=== PATIENT | male | born 1960 | race Caucasian/White ===

== ENCOUNTER → 2017-01-06 | Outpatient (REF) | payer OTHER | LOC: M LAB REF 16:51 | PROVIDERS: ATTEND Nurse Practitioner Family | DX: M15.9 Polyosteoarthritis, unspecified (principal); R21 Rash and other nonspecific skin eruption; Z01.89 Encounter for other specified special examinations ==

== ENCOUNTER → 2017-02-07 | Outpatient (CLI) | payer OTHER ==
[~2017-02-07] VITALS: Ht 175.3 cm; Wt 113.4 kg
[~2017-02-07] MED LIST: ALEV220C2 PO; CVS20TAB PO; LIDOCAINE 2% INJ 100 MG/5 ML SDV (FOR ANES.) As Ordered ONE; NS 1,000 ML IV SCH; PROPOFOL 200 MG/20 ML VIAL As Ordered ONE
--- NOTE | 2017-02-07 08:55 | ROOR ---
Patient Name: Jeramy Meza Procedure Date: 02/07/2017 8:38 AM Date of : 1960 Age: 56 Room: [facility] Gender: Male Note Status: Finalized Procedure: Colonoscopy Indications: Screening for colorectal malignant neoplasm Providers: Ronaldo ROWLAND MD Referring MD: Lisa HEATON NP Requesting Provider: Medicines: Monitored Anesthesia Care Complications: No immediate complications. Procedure: Pre-Anesthesia Assessment: - The heart rate, respiratory rate, oxygen saturations, blood pressure, adequacy of pulmonary ventilation, and response to care were monitored throughout the procedure. The Colonoscope was introduced through the anus and advanced to the cecum, identified by appendiceal orifice and ileocecal valve. The colonoscopy was performed without difficulty. The patient tolerated the procedure well. The quality of the bowel preparation was good. Findings: The perianal and digital rectal examinations were normal. A few medium-mouthed diverticula were found in the sigmoid colon. Small Internal Hemorrhoids. The exam was otherwise without abnormality on direct and retroflexion views. Impression: - Mild diverticulosis in the sigmoid colon. - Small Internal Hemorrhoids. - The examination was otherwise normal on direct and retroflexion views. - No specimens collected. Recommendation: - Repeat colonoscopy in 10 years for screening purposes. Ronaldo Rowland MD Ronaldo ROWLAND MD 02/07/2017 8:54:47 AM This report has been signed electronically. Number of Addenda: 0 Note Initiated On: 02/07/2017 8:38 AM Estimated Blood Loss: Estimated blood loss: none.
[2017-02-07 09:19] VITALS: BP 128/72
== END | disposition home or self-care (01) ==
LOC: M OPP 07:43
PROVIDERS: ATTEND Internal Medicine Gastroenterology
DX: Z12.11 Encounter for screening for malignant neoplasm of colon (principal); K57.30 Diverticulosis of large intestine without perforation or abscess without bleeding; K64.8 Other hemorrhoids; M19.90 Unspecified osteoarthritis, unspecified site; K21.9 Gastro-esophageal reflux disease without esophagitis; Z79.1 Long term (current) use of non-steroidal anti-inflammatories (NSAID)

== ENCOUNTER → 2017-05-08 | Outpatient (CLI) | payer OTHER ==
[~2017-05-08] MED LIST changes: -LIDOCAINE 2% INJ 100 MG/5 ML SDV (FOR ANES.) As Ordered ONE; -NS 1,000 ML IV SCH; -PROPOFOL 200 MG/20 ML VIAL As Ordered ONE
--- NOTE | 2017-05-08 12:09 | REP ---
Clinical: Back and left hip/lower extremity pain. Technique: AP, lateral, bilateral oblique and coned-down views of the lumbosacral spine. Findings: Moderate multilevel degenerative changes include endplate sclerosis, marginal spurring, and disc space narrowing. Hypertrophic facet changes at the L4-5 and L5-S1 levels are also suggested. No acute fracture / compression injury or subluxation. Impression: Moderate multilevel degenerative changes. Signed by Arvin Luciano MD 05/08/2017 12:01 P
--- NOTE | 2017-05-08 12:32 | REP ---
Clinical: Bilateral hip pain. Technique: AP of the pelvis with neutral and frog lateral views of the bilateral hips. Findings: Symmetric advanced degenerative arthritic changes to the bilateral hips includes joint space narrowing, subtle blunting to the normal rounded contour of the femoral heads, subchondral sclerosis and heterogeneity as well as marginal osteophytes. No acute fracture dislocation. Impression: Symmetric early advanced degenerative changes. Signed by Arvin Luciano MD 05/08/2017 12:24 P
[2017-05-10 00:07] LABS: Lyme Disease IgG/IgM Antibodie <0.91 ISR (0.00-0.90); Lyme Disease IgM Ab Quantitati <0.80 index (0.00-0.79)
== END ==
LOC: M WUC 11:06
PROVIDERS: ATTEND Nurse Practitioner Family
DX: M54.5 Low back pain (principal); M25.551 Pain in right hip

== ENCOUNTER → 2017-10-16 | Outpatient (CLI) | payer OTHER ==
[~2017-10-16] MED LIST changes: +HYDR25TAB PO; +MELO15TA4 PO
[2017-10-16 11:02] LABS: MEAN CORPUSCULAR HEMOGLOBIN 30.3 pg (27.0-33.0); MEAN CORPUSCULAR HGB CONC 34.4 g/dl (32.0-36.5); MEAN CORPUSCULAR VOLUME 88.1 fl (80.0-96.0); PLATELET COUNT, AUTOMATED 266 10^3/uL (150-450); RED CELL DISTRIBUTION WIDTH 13.3 % (11.5-14.5); WHITE BLOOD COUNT 6.2 10^3/uL (4.0-10.0)
[2017-10-16 11:21] LABS: INR 0.95
[2017-10-16 11:24] LABS: ERYTHROCYTE SEDIMENTATION RATE 3 mm/hr (0-20)
[2017-10-16 11:36] LABS: ALBUMIN 4.1 GM/DL (3.2-5.2); ALBUMIN/GLOBULIN RATIO 1.14 (1.00-1.93); ALKALINE PHOSPHATASE 53 U/L (45-117); ALT/SGPT 29 U/L (12-78); ANION GAP 9 MEQ/L (8-16); AST/SGOT 15 U/L (7-37); BILIRUBIN,TOTAL 0.8 MG/DL (0.2-1.0); BLOOD UREA NITROGEN 25 MG/DL (7-18); CALCIUM LEVEL 9.1 MG/DL (8.5-10.1); CARBON DIOXIDE LEVEL 28 MEQ/L (21-32); CHLORIDE LEVEL 105 MEQ/L (98-107); CREATININE FOR GFR 0.82 MG/DL (0.70-1.30); GLOMERULAR FILTRATION RATE > 60.0 (>56); GLUCOSE, FASTING 97 MG/DL (70-105); POTASSIUM SERUM 3.8 MEQ/L (3.5-5.1); SODIUM LEVEL 142 MEQ/L (136-145); TOTAL PROTEIN 7.7 GM/DL (6.4-8.2)
--- NOTE | 2017-10-16 13:38 | REP ---
Chest two views HISTORY: Back pain Comparison: None There is elevation of the right hemidiaphragm. The lungs are clear. The heart is normal in size. The pulmonary vasculature is normal in appearance. The bony structure is intact. IMPRESSION: No acute disease. Signed by El Helm MD 10/16/2017 01:29 P
--- NOTE | 2017-10-16 18:41 | ECGEPIP ---
Stationary ECG Study [facility] Test Date: 2017-10-16 Pat Name: ROBBIN COLLIER Department: Room: - Gender: M [employer]: : 1960 Requested By: Ron Kelley Order Number: [id number] Reading MD: Thai Tavera Measurements Intervals [place] Rate: 68 P: 35 VA: 180 QRS: 9 QRSD: 102 T: 21 QT: 387 QTc: 413 Interpretive Statements SINUS RHYTHM Normal Electronically Signed On 10-16-2017 18:41:19 EST by Thai Tavera
== END ==
LOC: M ADMPAT 09:27
PROVIDERS: ATTEND Orthopaedic Surgery
DX: Z01.818 Encounter for other preprocedural examination (principal); M16.12 Unilateral primary osteoarthritis, left hip; K21.9 Gastro-esophageal reflux disease without esophagitis

== ENCOUNTER 2017-10-23 10:30 | Inpatient (IN) | payer OTHER ==
[2017-10-16 09:51] VITALS: BP 128/82
--- NOTE | 2017-10-21 15:25 | HPE ---
DATE OF ADMISSION: 10/23/2017 CHIEF COMPLAINT: Left hip pain and stiffness. HISTORY OF PRESENT ILLNESS: Jeramy is a pleasant 57-year-old male with progressively worsening left hip pain and stiffness. He has failed to improve with conservative treatment. He has elected for surgery for his continued symptoms. He has pain with weightbearing activities and his activities of daily living. X-rays of his hip are notable for advanced osteoarthritis of the left hip joint. He has consented for a left total hip arthroplasty by Dr. Ron Traore. Medical optimization was performed by Dr. Gibbs. ALLERGIES: None. CURRENT MEDICATIONS: - omeprazole 20 once a day - meloxicam 50 mg once a day - hydrochlorothiazide 25 mg once a day PAST MEDICAL HISTORY: Gastroesophageal reflux disease and dependent edema. PAST SURGICAL HISTORY: Includes hernia repair. 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 He does not smoke and rarely drinks alcohol. FAMILY HISTORY: Noncontributory. REVIEW OF SYSTEMS: This patient denies chest pain, heart palpitations, cough, wheezing, difficulty breathing and shortness of breath. He denies abdominal pain, nausea, vomiting, diarrhea or constipation. He does complain of persistent pain in his left hip and pain with weightbearing activities in his left hip. PHYSICAL EXAMINATION: GENERAL: He is well-nourished, well-developed in no acute distress, alert male patient. He walks with a moderate limp favoring the left lower extremity. He is not using assistive devices. VITAL SIGNS: He is 68-3/4 inches tall, weight 241 pounds with a temperature of 98.1, blood pressure 130/100, pulse of 66 and respirations of 16. Neck was supple without adenopathy or jugular venous distension. LUNGS: Were clear to auscultation without rales or wheeze throughout. HEART: Regular rate and rhythm. ABDOMEN: Bowel sounds were present. EXTREMITIES: Examination of the hip revealed intact skin. He had decreased range of motion with internal, external rotation on exam today secondary to pain and stiffness. The limb is neurovascularly intact. LABORATORY DATA Chest x-ray showed no acute cardiopulmonary disease processes. EKG showed sinus rhythm. UA was within normal limits with a specific gravity of 1.019. Urine culture showed no growth. Nasal and sinus culture showed normal danny. Protime was 12.8, INR 0.95. Complete blood count was within normal limits with a sed rate of 3, glucose 97, BUN 25, creatinine 0.82, sodium 142, potassium 3.8. IMPRESSION: Symptomatic osteoarthritis of the left hip joint. PLAN: Consented for a left total hip arthroplasty by Dr. Ron Traore.
[~2017-10-23] VITALS: Ht 172.7 cm; Wt 108.9 kg
[2017-10-23] MEDS ORDERED: PREGABALIN 75 MG CAP(LYRICA) PO ONE (13:00)
[2017-10-23] MEDS ORDERED: PERCOCET 5MG/325MG TAB PO ONE (13:00)
[2017-10-23] MEDS ORDERED: LR 1,000 ML IV ONE (13:00)
[2017-10-23] MEDS ORDERED: CelecoXIB 400 MG CAP PO ONE (13:00)
[2017-10-23] MEDS ORDERED: TRANEXAMIC ACID 100 MG/ML 10ML VIAL As Ordered ONE (14:45)
[2017-10-23] MEDS ORDERED: ceFAZolin 1GM INJ (J0690 PER 500MG) As Ordered ONE (14:46)
[2017-10-23] MEDS ORDERED: EPINEPHrine INJ 1 MG/ML 1ML AMP As Ordered ONE (14:46)
[2017-10-23] MEDS ORDERED: LIDOCAINE W/EPINEPHRINE 1% 20ML VIAL As Ordered ONE (14:46)
[2017-10-23] MEDS ORDERED: BUPIVACAINE HCL 0.5% 10 ML VIAL As Ordered ONE (15:00)
[2017-10-23] MEDS ORDERED: BUPIVACAINE LIPOSOME/PF 1.3% 20 ML VIAL (13.3MG/ML)(EXPAREL) As Ordered ONE (15:00)
[2017-10-23] MEDS ORDERED: PROPOFOL 200 MG/20 ML VIAL As Ordered ONE (15:14)
[2017-10-23] MEDS ORDERED: PHENYLephrine HCL 500 MCG/5 ML (100MCG/ML) SYRINGE (J2370) As Ordered ONE ×2 (15:14→17:06)
[2017-10-23] MEDS ORDERED: fentaNYL 100 MCG/2 ML INJECTION (J3010) As Ordered ONE (15:14)
[2017-10-23] MEDS ORDERED: ONDANSETRON 4MG/2ML VIAL (J2405) As Ordered ONE (15:14)
[2017-10-23] MEDS ORDERED: LIDOCAINE 2% INJ 100 MG/5 ML SDV (FOR ANES.) As Ordered ONE (15:14)
[2017-10-23] MEDS ORDERED: MIDAZOLAM INJ 2 MG/2 ML VIAL (J2250) As Ordered ONE (15:14)
[2017-10-23] MEDS ORDERED: ePHEDrine SULFATE 25 MG/5 ML(5MG/ML) SYRINGE As Ordered ONE (17:07)
[2017-10-23] MEDS ORDERED: GLYCOPYRROLATE INJ 0.2 MG/ML 2 ML VIAL As Ordered ONE (17:21)
[2017-10-23] MEDS ORDERED: fentaNYL 100 MCG/2 ML INJECTION (J3010) IV PRN (18:45)
[2017-10-23] MEDS ORDERED: NORTRIPTYLINE 10 MG CAP PO PRN (18:45)
[2017-10-23] MEDS ORDERED: LR 1,000 ML IV SCH (18:45)
[2017-10-23] MEDS ORDERED: PERCOCET 5MG/325MG TAB PO PRN (18:45)
[2017-10-23] MEDS ORDERED: D5W/LR 1,000 ML IV SCH (18:45)
[2017-10-23] MEDS ORDERED: PROMETHAZINE INJ 25 MG/ML VIAL (J2550) IV PRN (18:45)
[2017-10-23] MEDS ORDERED: METOCLOPRAMIDE INJ 10MG/2ML VIAL (J2765) IV PRN (18:45)
[2017-10-23] MEDS ORDERED: ACETAMINOPHEN TAB 650MG DOSE (2X325MG) PO PRN (18:45)
[2017-10-23] MEDS ORDERED: FLEET ENEMA PR PRN (18:45)
[2017-10-23] MEDS ORDERED: ONDANSETRON 4MG/2ML VIAL (J2405) IV PRN (18:45)
[2017-10-23] MEDS: PERCOCET 5MG/325MG TAB PO PRN ×2 (18:46→21:47)
[2017-10-23] MEDS ORDERED: WARFARIN SOD 1 MG TAB PO ONE ×2 (19:00→21:00)
[2017-10-23 19:30] VITALS: BP 116/72
--- NOTE | 2017-10-23 19:54 | REP ---
HISTORY: Pain. COMPARISON: None. There is a total hip prosthetic device in place, the femoral and acetabular components of which are well-seated and well-approximated. There is no acute fracture or dislocation. There is no evidence of an abnormal periprosthetic lucency. IMPRESSION: No acute disease. Signed by Nathen Fisher DO 10/24/2017 02:10 P
[2017-10-23 20:00] VITALS: BP 120/75
[2017-10-23] MEDS: METAMUCIL (PSYLLIUM) PACKET PO SCH (20:51)
[2017-10-23] MEDS: ASCORBIC ACID 500 MG TAB PO SCH (20:51)
[2017-10-23] MEDS: PREGABALIN 50 MG CAP (LYRICA) PO SCH (20:51)
[2017-10-23 21:00] VITALS: BP 155/68
[2017-10-23 22:00] VITALS: BP 155/67
[2017-10-23 23:00] VITALS: BP 165/60
[2017-10-23] MEDS: ACETAMINOPHEN TAB 650MG DOSE (2X325MG) PO PRN (23:30)
[2017-10-24] VITALS: BP 132/86
[2017-10-24] MEDS: PERCOCET 5MG/325MG TAB PO PRN ×4 (02:11→14:42)
[2017-10-24] MEDS: ACETAMINOPHEN TAB 650MG DOSE (2X325MG) PO PRN ×3 (04:12→12:27)
[2017-10-24 06:00] VITALS: BP 122/69
[2017-10-24 07:17] LABS: MEAN CORPUSCULAR HEMOGLOBIN 29.7 pg (27.0-33.0); MEAN CORPUSCULAR HGB CONC 33.3 g/dl (32.0-36.5); PLATELET COUNT, AUTOMATED 212 10^3/uL (150-450); RED CELL DISTRIBUTION WIDTH 13.5 % (11.5-14.5); WHITE BLOOD COUNT 10.5 10^3/uL (4.0-10.0)
[2017-10-24] MEDS ORDERED: PERC5TAB12 PO (08:20)
[2017-10-24] MEDS ORDERED: COUM2.5T17 PO (08:20)
[2017-10-24] MEDS: METAMUCIL (PSYLLIUM) PACKET PO SCH (08:21)
[2017-10-24] MEDS: PREGABALIN 50 MG CAP (LYRICA) PO SCH (08:21)
[2017-10-24] MEDS: ASCORBIC ACID 500 MG TAB PO SCH (08:21)
[2017-10-24 08:55] LABS: INR 1.12
[2017-10-24] MEDS ORDERED: MOM 30ML SUSPENSION UDC PO SCH (09:00)
[2017-10-24] MEDS ORDERED: CelecoXIB (CeleBREX) 100 MG CAP PO SCH (09:00)
[2017-10-24] MEDS ORDERED: OMEPRAZOLE 20 MG CAP PO SCH (09:00)
--- NOTE | 2017-10-24 09:52 | RO ---
DATE OF PROCEDURE: 10/23/2017 PREOPERATIVE DIAGNOSIS: Left hip osteoarthritis. POSTOPERATIVE DIAGNOSIS: Left hip osteoarthritis. PROCEDURE PERFORMED: Left total hip replacement. SURGEON: Dr. Ron Traore. RECEIVING MANAGER: Jeramy Mauricio PA-C ANESTHESIA: Spinal. ESTIMATED BLOOD LOSS: 50 mL replaced with crystalloid. COMPLICATIONS: None. INDICATIONS: Progressive discomfort in the left hip interfering with activities of daily living. The patient has elected for operative intervention. Consent reviewed in detail with the patient including emily discussion of the pathology involved, the procedure proposed, alternatives including doing nothing. We also had a emily discussion about bearing surfaces, metal versus ceramic for example. The patient elects for a ceramic bearing. Next, we talked about risks including not limited to pain, failure, catastrophic failure of the bearing surface, infection, bleeding blood clots, blood loss, dislocation, need for more surgery and other issues. The patient agrees to proceed with surgery. OPERATIVE COURSE: Identified in the holding area, site side verified, brought to the operating room. COMPONENTS USED: Include DePuy Trimble system size 6 high offset stem, plus 5 neck length 36 mm ceramic femoral head, size 56 mm acetabular shell, size 36 mm inner diameter acetabular AltrX liner, apex hole eliminator. OPERATIVE COURSE: Once the patient was positioned on the Andrade frame for exposure of the left hip for arthroplasty in the usual position, I stood on the patient's posterior, Mr. Mauricio anterior. Incision was outlined with a marking pen, infiltrated with 1% lidocaine with epinephrine made with a 10 blade knife developed down through skin and subcuticular tissues to lateral fascia. Lateral fascia was split parallel with the fibers exposing the abductor mechanism. Split was created at the anterior one-third position in the abductor mechanism for the modified Hardinge approach. Femoral neck was exposed. Abductor mechanism anteriorly was tagged and released from the greater trochanter leaving a cuff of tissue for later repair. The capsular tissues were also released and the vastus lateralis was split to allow palpation of the lesser trochanter. Next, reflected head of the vastus was also released and the acetabular labrum was split at the 2 o'clock position. Next using a bone hook, I placed the bone hook around the femoral neck and Mr. Mauricio manipulated the hip to assist with dislocation. Hip was dislocated. Appropriate retractors placed. Canal opening reamer was utilized followed by canal finding reamer and lateralizing reamer. We then reamed through a size 6 conical reamer. Template was applied and I made the femoral neck cut using the oscillating saw approximately three-quarter fingerbreadths from the lesser trochanter. Next, once the femoral head was removed, we then turned our attention to the acetabulum. Appropriate retractors were placed and the hip was placed in the bag for acetabular exposure. Next, acetabular labrum was removed and the floor of the acetabular fossa was cleared using hot knife. Once this was accomplished, I utilized hemispherical reamers to ream from a size 48 through a size 55 cup. I reamed the floor of the acetabulum. Next, I placed a 55-56 trial using the targeting device and this seemed to fit appropriately. I then irrigated with pulse lavage and placed a size 56 mm non-trial acetabular shell. Wheatley hole eliminator was placed after I verified the shell was in the floor of the acetabulum. Acetabular liner was placed, tamped into place with the nylon impactor, the non-trial liner. Next, we positioned the hip for exposure of the proximal femur again. I then utilized the box fabricator to open the proximal femur followed by use of the broaches. I utilized size 2 through size 6 broaches, Size 6 fit appropriately and the neck cut was adequate. Next from the 6 broach, I trialed a high offset plus five 36 mm trial. This was placed through a range of motion. It was found to be stable in flexion and internal rotation as well as extension and external rotation. Next, trial was dislocated. Leksell utilized to remove some acetabular osteophyte. Next, non-trial femoral component was obtained. Pulse lavage was accomplished Non-trial high offset femoral component was installed plus five. 36 mm ceramic femoral head was installed tamped into place with a nylon impactor. Hip was reduced. Again irrigation accomplished. TXA solution was placed in the hip allowed stand for 1 minute and evacuated. Next, once this was accomplished, minimus tissue was reapproximated using interrupted stitch. Abductor mechanism was reapproximated to the greater trochanter and cuff tissue using interrupted stitch. Vastus lateralis reapproximated using interrupted running stitch. Interrupted stitch utilized to repair the lateral fascia followed by use of a running Stratafix stitch repairing the lateral fascia. Next, irrigation again accomplished. We also injected Exparel 20 mL, 20 mL Marcaine, 20 mL saline solution. This was injected circumferentially around the fascial tissues around the wound and subcuticular areas. Next, once this was accomplished, Linda's fascia deep dermis reapproximated with interrupted stitch. Prineo dressing placed on skin. Next the Andrade table was disassembled. The patient was moved to the prone position, moved to the hospital bed with a pillow between the knees in good condition. Leg lengths were appreciated to be approximately equal. Mr. Mauricio participated in the entirety of the case in the capacity of real estate legal assistant. I was present for the entirety of the case. Next, for further details please refer to medical record.
[2017-10-24] MEDS: CEPACOL LOZENGE PO PRN ×2 (10:50→14:42)
[2017-10-24] MEDS ORDERED: WARFARIN SOD 5 MG TAB PO ONE (17:00)
--- NOTE | 2017-10-28 11:01 | DSES ---
DATE OF ADMISSION: 10/23/2017 DATE OF DISCHARGE: 10/24/2017 ADMISSION DIAGNOSIS: Osteoarthritis left hip. OTHER DIAGNOSES: Gastric reflux disease. Dependent edema. ATTENDING PHYSICIAN: Dr. Traore DISCHARGE DIAGNOSIS: Osteoarthritis left hip status post left total hip arthroplasty. OPERATION PERFORMED: Left total hip arthroplasty. HISTORY: This is a pleasant 57-year-old male patient with progressively worsening left hip pain and stiffness who failed to improve with conservative management who was admitted for elective hip replacement. HOSPITAL COURSE: The patient was admitted on day of surgery and underwent a left total hip arthroplasty which was uneventful. He did well in the postoperative period and his hospital course was without complications. He was up with physical therapy per their protocol. His pain was controlled. On day of discharge, he was doing well, weightbearing as tolerated on his left lower extremity. He will use adjusted dose Coumadin and thromboembolic deterrent stockings (TEDS) for 30 days postoperative for deep venous thrombosis (DVT) prophylaxis. He will resume his preoperative medications and diet. He was given instructions to include but not limited to wound monitoring, activity limitations. May use oral pain medications for pain control. Follow up in our office in 10-14 days for surgical followup. Please refer the medical record for further details.
== END 2017-10-24 14:51 | disposition home or self-care (01) | DRG 470 ==
LOC: M OR 12:48 → M MS5PR 19:30
PROVIDERS: ADMIT Orthopaedic Surgery; ATTEND Orthopaedic Surgery
PROC: 0SRB04A Replacement of Left Hip Joint with Ceramic on Polyethylene Synthetic Substitute, Uncemented, Open Approach (ICD-10-PCS; principal; 2017-10-23 15:10)
DX: M16.12 Unilateral primary osteoarthritis, left hip (principal); K21.9 Gastro-esophageal reflux disease without esophagitis; Z79.899 Other long term (current) drug therapy

== ENCOUNTER → 2018-10-13 | Outpatient (CLI) | payer OTHER ==
[2018-10-13 09:43] LABS: HEMATOCRIT 43.5 % (42.0-52.0); HEMOGLOBIN 14.6 g/dl (13.5-17.5); MEAN CORPUSCULAR HEMOGLOBIN 30.2 pg (27.0-33.0); MEAN CORPUSCULAR HGB CONC 33.6 g/dl (32.0-36.5); MEAN CORPUSCULAR VOLUME 89.9 fl (80.0-96.0); PLATELET COUNT, AUTOMATED 263 10^3/uL (150-450); RED BLOOD COUNT 4.84 10^6/uL (4.30-6.10); RED CELL DISTRIBUTION WIDTH 13.7 % (11.5-14.5)
[2018-10-13 09:57] LABS: INR 0.99; PROTHROMBIN TIME 13.2 SECONDS (12.1-14.4)
[2018-10-13 10:06] LABS: ALBUMIN 3.7 GM/DL (3.2-5.2); ALBUMIN/GLOBULIN RATIO 1.16 (1.00-1.93); ALKALINE PHOSPHATASE 54 U/L (45-117); ALT/SGPT 29 U/L (12-78); ANION GAP 7 MEQ/L (8-16); AST/SGOT 14 U/L (7-37); BILIRUBIN,TOTAL 0.6 MG/DL (0.2-1.0); BLOOD UREA NITROGEN 25 MG/DL (7-18); CALCIUM LEVEL 8.7 MG/DL (8.5-10.1); CARBON DIOXIDE LEVEL 28 MEQ/L (21-32); CHLORIDE LEVEL 108 MEQ/L (98-107); CREATININE FOR GFR 0.85 MG/DL (0.70-1.30); GLOMERULAR FILTRATION RATE > 60.0 (>56); GLUCOSE, FASTING 88 MG/DL (70-100); POTASSIUM SERUM 4.3 MEQ/L (3.5-5.1); SODIUM LEVEL 143 MEQ/L (136-145); TOTAL PROTEIN 6.9 GM/DL (6.4-8.2)
[2018-10-13 10:08] LABS: ERYTHROCYTE SEDIMENTATION RATE 4 mm/hr (0-20)
== END ==
LOC: M LAB 08:38
DX: Z01.818 Encounter for other preprocedural examination (principal); M16.11 Unilateral primary osteoarthritis, right hip
CPT/HCPCS: 71046

== ENCOUNTER 2018-10-26 10:53 | Inpatient (IN) | payer OTHER ==
[2018-10-26] MEDS: LR 1,000 ML IV ×2 (12:00→15:30)
[2018-10-26] MEDS: CelecoXIB 400 MG CAP PO (12:05)
[2018-10-26] MEDS: PERCOCET 5MG/325MG TAB PO ×3 (12:05→22:48)
[2018-10-26] MEDS: PREGABALIN 75 MG CAP(LYRICA) PO (12:05)
[2018-10-26] MEDS: ceFAZolin SOD 1 GM in D5W MINI-BAG PLUS 50 ML IV ×2 (12:45→21:34)
[2018-10-26] MEDS ORDERED: MIDAZOLAM INJ 2 MG/2 ML VIAL (J2250) As Ordered (13:01)
[2018-10-26] MEDS ORDERED: fentaNYL 100 MCG/2 ML INJECTION (J3010) As Ordered (13:01)
[2018-10-26] MEDS ORDERED: LIDOCAINE 2% INJ 100 MG/5 ML SDV (FOR ANES.) As Ordered ×2 (13:01→13:40)
[2018-10-26] MEDS ORDERED: PROPOFOL 200 MG/20 ML VIAL As Ordered ×3 (13:01→13:39)
[2018-10-26] MEDS ORDERED: BUPIVACAINE/DEXTROSE 0.75% 2 ML AMP As Ordered ×2 (13:01→13:06)
[2018-10-26] MEDS ORDERED: ePHEDrine SULFATE 25 MG/5 ML(5MG/ML) SYRINGE As Ordered (13:08)
[2018-10-26] MEDS: TRANEXAMIC ACID 100 MG/ML 10ML VIAL As Ordered (14:24)
[2018-10-26] MEDS: EPINEPHrine INJ 1 MG/ML 1ML AMP As Ordered (14:24)
[2018-10-26] MEDS: ceFAZolin 1GM INJ (J0690 PER 500MG) As Ordered (14:24)
[2018-10-26] MEDS: BUPIVACAINE/EPIN 0.25% 30 ML VIAL As Ordered (14:25)
[2018-10-26] MEDS: BUPIVACAINE HCL 0.5% 10 ML VIAL As Ordered (14:26)
[2018-10-26] MEDS: BUPIVACAINE LIPOSOME/PF 1.3% 20ML VIAL (13.3MG/ML)(EXPAREL)(C9290 PER1MG) As Ordered (14:26)
[2018-10-26] MEDS ORDERED: ONDANSETRON 4MG/2ML VIAL (J2405) IV (15:30)
[2018-10-26] MEDS ORDERED: fentaNYL 100 MCG/2 ML INJECTION (J3010) IV (15:30)
[2018-10-26] MEDS ORDERED: NORCO, ANEXSIA 5/325MG TABLET (HYDROcodone/ACETAMINOPHEN) PO (15:30)
[2018-10-26] MEDS ORDERED: PERCOCET 5MG/325MG TAB PO (15:45)
[2018-10-26] MEDS ORDERED: NORTRIPTYLINE 10 MG CAP PO (15:45)
[2018-10-26] MEDS: D5W/LR 1,000 ML IV (15:45)
[2018-10-26] MEDS ORDERED: ACETAMINOPHEN TAB 650MG DOSE (2X325MG) PO (15:45)
[2018-10-26] MEDS ORDERED: FLEET ENEMA PR (15:45)
[2018-10-26] MEDS ORDERED: HYDROMORPHONE HCL 0.5 MG/ 0.5 ML SYRINGE (J1170 PER 1) IV (15:45)
[2018-10-26] MEDS ORDERED: PROMETHAZINE INJ 25 MG/ML VIAL (J2550) IV (15:45)
[2018-10-26] MEDS: HYDROMORPHONE HCL 0.5 MG/ 0.5 ML SYRINGE (J1170 PER 1) IV (19:41)
[2018-10-26] MEDS: OMEPRAZOLE 20 MG CAP PO (21:34)
[2018-10-27] MEDS: HYDROMORPHONE HCL 0.5 MG/ 0.5 ML SYRINGE (J1170 PER 1) IV (01:26)
[2018-10-27] MEDS: D5W/LR 1,000 ML IV ×2 (01:45→10:31)
[2018-10-27] MEDS: PERCOCET 5MG/325MG TAB PO ×5 (04:49→23:27)
[2018-10-27] MEDS: ceFAZolin SOD 1 GM in D5W MINI-BAG PLUS 50 ML IV (06:04)
[2018-10-27 06:49] LABS: HEMATOCRIT 40.8 % (42.0-52.0); HEMOGLOBIN 13.8 g/dl (13.5-17.5); MEAN CORPUSCULAR HEMOGLOBIN 30.4 pg (27.0-33.0); MEAN CORPUSCULAR HGB CONC 33.8 g/dl (32.0-36.5); MEAN CORPUSCULAR VOLUME 89.9 fl (80.0-96.0); PLATELET COUNT, AUTOMATED 201 10^3/uL (150-450); RED BLOOD COUNT 4.54 10^6/uL (4.30-6.10); RED CELL DISTRIBUTION WIDTH 13.4 % (11.5-14.5); WHITE BLOOD COUNT 14.3 10^3/uL (4.0-10.0)
[2018-10-27] MEDS: MIRALAX *UNIT DOSE* 17GM PACKET PO (08:53)
[2018-10-27] MEDS: CYCLOBENZAPRINE 10 MG TAB PO ×4 (08:53→23:26)
[2018-10-27] MEDS: MOM 30ML SUSPENSION UDC PO (08:53)
[2018-10-27] MEDS: OMEPRAZOLE 20 MG CAP PO (08:54)
[2018-10-27] MEDS: FLUBLOK(EGG FREE)(QUAD)INFLUENZA VACC 0.5ML SYRINGE (90682)18YRS&OLDER IM (08:55)
[2018-10-27] MEDS ORDERED: CelecoXIB (CeleBREX) 100 MG CAP PO (09:00)
[2018-10-27] MEDS: CelecoXIB 400 MG CAP PO (09:36)
[2018-10-27] MEDS: RIVAROXABAN 10 MG TAB (XARELTO) PO (17:13)
[2018-10-28] MEDS: CYCLOBENZAPRINE 10 MG TAB PO ×2 (05:33→12:22)
[2018-10-28] MEDS: PERCOCET 5MG/325MG TAB PO ×2 (05:34→10:15)
[2018-10-28] MEDS: MOM 30ML SUSPENSION UDC PO (10:14)
[2018-10-28] MEDS: OMEPRAZOLE 20 MG CAP PO (10:14)
[2018-10-28] MEDS: MIRALAX *UNIT DOSE* 17GM PACKET PO (10:14)
== END 2018-10-28 13:00 | disposition home or self-care (01) | DRG 470 ==
LOC: M OR 10:53 → M MS5PR 16:30
PROVIDERS: Orthopaedic Surgery
PROC: 0SR904Z Replacement of Right Hip Joint with Ceramic on Polyethylene Synthetic Substitute, Open Approach (ICD-10-PCS; principal; 2018-10-26 12:43)
DX: M16.11 Unilateral primary osteoarthritis, right hip (principal); K21.9 Gastro-esophageal reflux disease without esophagitis; I87.2 Venous insufficiency (chronic) (peripheral); L30.9 Dermatitis, unspecified; M54.5 Low back pain; Z96.642 Presence of left artificial hip joint; Z79.899 Other long term (current) drug therapy

== ENCOUNTER → 2019-06-30 | Outpatient (CLI) | payer OTHER ==
[~2019-06-30] MED LIST changes: +COUM2.5T17 PO; -CVS20TAB PO; +CYCL10TA PO; +KETO10TAB PO; +MELO15TA28 PO; -MELO15TA4 PO; +OMEP20TA9 PO; +ONDA4TAB6 PO; +PERC5TAB12 PO; +TAMS1CAP17; +TYLE325T5 PO; +XARE10TA PO
[2019-06-30 20:11] LABS: BASO % 0.1 % (0.0-1.0); EOS % 0.1 % (0.0-3.0); HEMATOCRIT 41.3 % (42.0-52.0); HEMOGLOBIN 14.3 g/dl (13.5-17.5); LYMPH # 0.9 10^3/uL (1.5-4.5); LYMPH % 6.1 % (24.0-44.0); MEAN CORPUSCULAR HEMOGLOBIN 30.7 pg (27.0-33.0); MEAN CORPUSCULAR HGB CONC 34.6 g/dl (32.0-36.5); MEAN CORPUSCULAR VOLUME 88.6 fl (80.0-96.0); MONO # 1.7 10^3/uL (0.0-0.8); MONO % 11.2 % (0.0-5.0); NEUTROPHILS # 12.3 10^3/uL (1.8-7.7); PLATELET COUNT, AUTOMATED 234 10^3/uL (150-450); RED BLOOD COUNT 4.66 10^6/uL (4.30-6.10)
[2019-06-30 20:30] LABS: BLOOD UREA NITROGEN 23 MG/DL (7-18); CALCIUM LEVEL 8.8 MG/DL (8.8-10.2); CARBON DIOXIDE LEVEL 26 MEQ/L (21-32); CHLORIDE LEVEL 104 MEQ/L (98-107); CREATININE FOR GFR 1.23 MG/DL (0.70-1.30); GLOMERULAR FILTRATION RATE > 60.0 (>49); GLUCOSE, FASTING 105 MG/DL (70-100); SODIUM LEVEL 139 MEQ/L (136-145)
--- NOTE | 2019-07-01 09:40 | REP ---
Supine abdomen two AP views: Comparison is the lumbar spine study dated 05/08/2017. The bowel gas pattern is normal. There are no calcifications or foreign bodies. The soft tissues and skeletal structures are otherwise unremarkable except for mild lumbar scoliosis convex right, possibly positional. There are bilateral hip arthroplasties. Impression: Normal bowel gas pattern. Mild lumbar scoliosis, possibly positional. Bilateral hip arthroplasties. Electronically Signed by Ad Piña MD 06/30/2019 06:30 P
== END ==
LOC: M WUC 17:58
PROVIDERS: ATTEND Physician Assistant
DX: M41.26 Other idiopathic scoliosis, lumbar region (principal); Z96.641 Presence of right artificial hip joint; Z96.642 Presence of left artificial hip joint

== ENCOUNTER 2019-07-01 13:00 | Emergency (ER) | payer OTHER ==
[~2019-07-01] VITALS: Ht 175.3 cm; Wt 109.1 kg
[~2019-07-01 13:00] MED LIST changes: -KETO10TAB PO; -ONDA4TAB6 PO; -TAMS1CAP17
[2019-07-01] MEDS ORDERED: TAMS1CAP17 (13:08)
[2019-07-01 13:56] LABS: BASO % 0.2 % (0.0-1.0); EOS % 0.2 % (0.0-3.0); HEMATOCRIT 41.9 % (42.0-52.0); HEMOGLOBIN 14.4 g/dl (13.5-17.5); LYMPH # 1.1 10^3/uL (1.5-4.5); LYMPH % 8.8 % (24.0-44.0); MEAN CORPUSCULAR HEMOGLOBIN 31.3 pg (27.0-33.0); MEAN CORPUSCULAR HGB CONC 34.4 g/dl (32.0-36.5); MEAN CORPUSCULAR VOLUME 91.1 fl (80.0-96.0); MONO # 1.5 10^3/uL (0.0-0.8); MONO % 12.2 % (0.0-5.0); NEUTROPHILS # 9.9 10^3/uL (1.8-7.7); PLATELET COUNT, AUTOMATED 220 10^3/uL (150-450); WHITE BLOOD COUNT 12.7 10^3/uL (4.0-10.0)
[2019-07-01] MEDS ORDERED: NS 1,000 ML IV ONE (14:00)
[2019-07-01] MEDS ORDERED: KETOROLAC 30 MG/ML VIAL (J1885) IV ONE (14:00)
[2019-07-01] MEDS ORDERED: ONDANSETRON 4MG/2ML VIAL (J2405) IV ONE (14:00)
[2019-07-01 14:08] LABS: BLOOD UREA NITROGEN 21 MG/DL (7-18); CALCIUM LEVEL 9.3 MG/DL (8.8-10.2); CARBON DIOXIDE LEVEL 27 MEQ/L (21-32); CHLORIDE LEVEL 102 MEQ/L (98-107); CREATININE FOR GFR 1.24 MG/DL (0.70-1.30); GLOMERULAR FILTRATION RATE > 60.0 (>49); GLUCOSE, FASTING 107 MG/DL (70-100); POTASSIUM SERUM 3.8 MEQ/L (3.5-5.1); SODIUM LEVEL 137 MEQ/L (136-145)
[2019-07-01 14:58] VITALS: BP 144/83
[2019-07-01] MEDS ORDERED: ONDA4TAB6 PO (15:38)
[2019-07-01] MEDS ORDERED: KETO10TAB PO (15:38)
== END 2019-07-01 15:50 | disposition home or self-care (01) ==
LOC: M ED 13:00
DX: N13.30 Unspecified hydronephrosis (principal); Z79.899 Other long term (current) drug therapy
CPT/HCPCS: 80048; 81001; 85025; 96361; 96374; 96375; 99284; J1885; J2405

== ENCOUNTER → 2019-07-01 | Outpatient (CLI) | payer OTHER ==
--- NOTE | 2019-07-01 11:18 | REP ---
REASON: Abdominal pain. There are no priors for comparison. The lack of intravenous contrast decreases the sensitivity of the exam. Limited evaluation of the solid abdominal organs and gallbladder shows no gross abnormalities. Limited evaluation of the pancreas, adrenal glands, and right kidney shows no gross abnormalities. There is moderate to severe left-sided hydronephrosis. There is significant left perinephric stranding. There is evidence of periureteral stranding. I cannot evaluate the ureters in the pelvis due to bilateral hip prosthesis causing marked spray artifact obscuring the pelvic images. The abdominal aorta and para-aortic regions show no gross abnormalities. Nonenlarged para-aortic lymph nodes are present. There is no free fluid or free air in the abdomen. There is descending colon diverticulosis. CT PELVIS: Marked spray artifact obscuring the pelvic images. There is sigmoid colon diverticulosis. I cannot rule out distal ureteral calculi. Bone window technique throughout the exam shows chronic changes. Suspected bibasilar subsegmental atelectatic changes are seen. There are no pleural or pericardial effusions. There is a moderate hiatal hernia. IMPRESSION: Hydronephrosis and related findings on the left, as described above, consistent with acute obstructive phenomenon. Exact etiology uncertain due to the limitations of the exam. Distal ureteral calculi cannot be ruled out. Consider urological consultation. Other findings as described above. Electronically Signed by Nathen Fisher DO 07/01/2019 12:19 P
== END ==
LOC: M RAD 09:47
PROVIDERS: ATTEND Physician Assistant
DX: N13.30 Unspecified hydronephrosis (principal); K44.9 Diaphragmatic hernia without obstruction or gangrene

== ENCOUNTER → 2019-07-05 | Outpatient (REF) | payer OTHER ==
[~2019-07-05] MED LIST changes: +KETO10TAB PO; +ONDA4TAB6 PO; +TAMS1CAP17
== END ==
LOC: M LAB REF 16:28
PROVIDERS: ATTEND Internal Medicine
DX: R50.9 Fever, unspecified (principal)

== ENCOUNTER → 2019-07-06 | Outpatient (REF) | payer OTHER | LOC: M SMT 16:53 | PROVIDERS: ATTEND Urology | DX: N13.30 Unspecified hydronephrosis (principal) ==

== ENCOUNTER → 2019-07-09 | Outpatient (REF) | payer OTHER ==
--- NOTE | 2019-07-09 18:15 | CR ---
DATE OF CONSULTATION: 07/09/2019 CONSULTATION FOR: Dr. Eldridge Dear Dr. Eldridge, thank you for asking me to see Mr. Jeramy Meza in consultation prior to his cystoscopy. Mr. Meza is, as you know, a 59-year-old mariano who has enjoyed quite good health except for osteoarthritis (OA)/degenerative joint disease (DJD), status post bilateral total hip arthroplasty (RODRÍGUEZ), gastroesophageal reflux disease (GERD), venous insufficiency, but presented to [facility] Emergency Room (ER) with severe left flank pain and urinary urgency with CT imaging showing left moderate to severe hydronephrosis, but because of scatter from bilateral THAs, difficulty seeing the ureter as it went to the pelvis. The patient was treated with Toradol, Flomax, and Zofran. He developed renal insufficiency, nausea, anorexia. His Toradol was discontinued. His omeprazole increased of 20 mg twice a day and treated with Zofran with significant improvement in his symptoms. A renal ultrasound done 07/06/2019, 5 days after the original CT scan showing the moderately severe hydronephrosis, showed resolving hydronephrosis, still no evidence of stone. Interestingly, patient has never shown any significant hematuria on urine testing. Urine culture has been negative, but C-reactive proteins (CRPs) have been elevated, as high as 8.3 on July 05 with improvement to 2.8 on 07/09/2019 and sedimentation rates being 50 on 07/05/2019 and 45 on followup 07/09/2019. 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 He denies any chest pain, palpitations, syncope, or presyncope. He is feeling much better since getting off the Toradol. Reports that he urinated volumes of urine after stopping it and lost 5-7 pounds. He also reports he is off the Flomax. He has not needed to Zofran. He lowered the omeprazole back to once after 2 days. REVIEW OF SYSTEMS: Otherwise negative. PAST MEDICAL HISTORY: 1. GERD. 2. Left thumb OA DJD. 3. Low back pain. 4. Bilateral inguinal hernia status post repair in 1990. 5. Bilateral RODRÍGUEZ. Left hip replacement October 2017, right hip replacement October 2018. 6. Low back pain. 7. Obesity. MEDICATIONS: Aleve as needed, hydrochlorothiazide, omeprazole 20 mg daily, Percocet as needed, clobetasol as needed. DRUG ALLERGIES: Edema and renal insufficiency and nonsteroidal anti-inflammatory drugs (NSAIDs). 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 Never smoked. Occasional alcohol. FAMILY HISTORY: Father had osteoarthritis, diabetes, irregular heart rate with pacer. at age 79. Mother had knee replacements, breast cancer. There is a family history of diabetes. Children are alive and well, but he notes three daughters have nephrolithiasis as well as his mother. PHYSICAL EXAMINATION: Overweight male in no acute distress. VITAL SIGNS: Weight 244 with a body mass index (BMI)of 37, oxygen saturations 94% after exertion, blood pressure 112/70 with a heart rate of 76. Head normocephalic. Neck is supple. Pupils equal and reactive to light. External ocular movements are intact. He has bilateral ceruminosis. He does wear eyeglasses. He has no cervical lymphadenopathy, jugular venous distention (JVD), or carotid bruit bruits. RESPIRATORY: Clear to auscultation, resonant to percussion. No flank pain. CARDIOVASCULAR: Regular rate and rhythm. No murmur, rub, gallop. ABDOMEN: Obese, soft, nontender. No hepatosplenomegaly. GENITOURINARY: Deferred. EXTREMITIES: No cyanosis or clubbing. He does have large varicose veins. He does left thumb arthritic change. No pitting edema. DERMATOLOGIC: Multiple seborrheic keratoses. NEUROLOGIC: Alert and oriented. Cranial nerves II-XII intact.. LABORATORY DATA: Metabolic profile: Renal insufficiency, GFR of 56, improved from 44 four days ago. CBC normal. Sedimentation rate is improved from 50 to 45 in 4 days. CRP is improved from 8.3 to 2.8 in 4 days. Urinalysis (UA) was negative 07/05/2019 for red blood cells or white blood cells. Culture was negative. EKG today: Normal sinus rhythm, rate of 76, axis of 9. Normal VA, QRS, QTC. Normal R-wave progression. No atrial or ventricle hypertrophy. No pathologic Q waves. IMPRESSION: Mr. 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 The patient is felt to be optimized and at low risk for cardiovascular complications from the proposed surgical intervention, which can be further minimized by the following. 1. Renal insufficiency. Expect secondary to NSAIDs, complicated by edema. Avoid all NSAIDs. I will recheck when he returns to see me August 25. In the meantime, avoid NSAIDs. Push fluids. 2. Hydronephrosis, etiology unclear. Hematuria appears to be resolving per ultrasound. Await results of cystoscopy. He will use hydrocodone only if mandatory. 3. Gastroesophageal reflux disease (GERD). He will take his omeprazole with sip of water morning of surgery. 4. Osteoarthritis (OA), status post bilateral total hip arthroplasty (RODRÍGUEZ). He will use Tylenol and rarely use Aleve. 5. Venous insufficiency. He will sparingly use his hydrochlorothiazide. Thank you very much for this consultation. Please call with questions or concerns.
== END ==
LOC: M LAB REF 12:32
PROVIDERS: ATTEND Internal Medicine
DX: M15.9 Polyosteoarthritis, unspecified (principal)

== ENCOUNTER → 2019-08-10 | Outpatient (REF) | payer OTHER ==
[2019-08-10 13:58] LABS: APPEARANCE, URINE CLEAR (CLEAR); BACTERIA, URINE AUTO NEGATIVE (NEGATIVE); BILIRUBIN, URINE AUTO NEGATIVE (NEGATIVE); BLOOD, URINE BLOOD NEGATIVE (NEGATIVE); COLOR, URINE YELLOW (YELLOW); GLUCOSE, URINE (UA) AUTO NEGATIVE (NEGATIVE); KETONE, URINE AUTO NEGATIVE (NEGATIVE); LEUKOCYTE ESTERASE, URINE AUTO NEGATIVE (NEGATIVE); MUCUS, URINE SMALL (NEGATIVE); NITRITE, URINE AUTO NEGATIVE (NEGATIVE); PROTEIN, URINE AUTO NEGATIVE (NEGATIVE); RBC, URINE AUTO 0 /HPF (0-3); SPECIFIC GRAVITY URINE AUTO 1.025 (1.002-1.035); SQUAMOUS EPITHELIAL CELL UR AU 0 /HPF (0-6); UROBILINOGEN, URINE AUTO 0.2 mg/dL (0.0-2.0); WBC, URINE AUTO 0 /HPF (0-3)
== END ==
LOC: M SMT 12:55
PROVIDERS: ATTEND Nurse Practitioner Family
DX: N13.30 Unspecified hydronephrosis (principal)

== ENCOUNTER → 2019-08-18 | Outpatient (CLI) | payer OTHER ==
--- NOTE | 2019-08-18 10:11 | REP ---
RENAL ULTRASOUND: Real-time sonographic evaluation of the kidneys was performed. The kidneys are normal in size and echotexture, right kidney measuring 12.1 x 7.2 x 6.6 cm and left kidney 13.0 x 5.9 x 7.6 cm. There is no hydronephrosis bilaterally. There is a 4-5 mm echogenic focus in the mid left kidney which has a somewhat linear configuration and does not demonstrate distal acoustic shadowing, most likely representing a vascular reflection or calcification. Otherwise no definite stones are seen in either kidney and there is no evidence of renal mass. IMPRESSION: No hydronephrosis. 4-5 mm echogenic focus mid left kidney most likely represents a vascular reflection or calcification. Electronically Signed by Ad Perrin MD 08/18/2019 06:21 P
--- NOTE | 2019-08-18 10:13 | REP ---
URINARY BLADDER ULTRASOUND: Real-time sonographic evaluation of the urinary bladder was performed. Bladder measures 5.9 x 7.6 x 4.8 cm. Volume is 113 mL. There is no gross mass, calculus, or wall thickening. Ureteral jets are seen in the urinary bladder bilaterally with Doppler color evaluation. IMPRESSION: Suboptimal distension of the bladder with no gross abnormality. Electronically Signed by Ad Perrin MD 08/18/2019 06:21 P
== END ==
LOC: M RAD 07:54
PROVIDERS: ATTEND Nurse Practitioner Family
DX: N13.30 Unspecified hydronephrosis (principal)

== ENCOUNTER → 2019-08-25 | Outpatient (REF) | payer OTHER | LOC: M LAB REF 17:09 | PROVIDERS: ATTEND Internal Medicine | DX: M25.50 Pain in unspecified joint (principal) ==

== ENCOUNTER 2021-12-31 23:55 | Emergency (ER) | payer OTHER ==
[~2021-12-31] VITALS: Ht 180.3 cm; Wt 112.6 kg
[~2021-12-31 23:55] MED LIST changes: +CYCL-707 PO; -CYCL10TA PO; +HYDR-3490 PO; -HYDR25TAB PO; +OMEP20TA2 PO; -OMEP20TA9 PO
[2022-01-01] MEDS ORDERED: KETOROLAC 30 MG/ML 1ML VIAL IV ONE (00:45)
[2022-01-01] MEDS ORDERED: ONDANSETRON 4MG/2ML VIAL IV ONE (00:45)
[2022-01-01] MEDS ORDERED: NS 1,000 ML IV ONE (00:45)
[2022-01-01 01:21] LABS: BASO % 0.3 % (0.0-1.0); EOS % 0.3 % (0.0-3.0); HEMATOCRIT 46.1 % (42.0-52.0); HEMOGLOBIN 15.5 g/dl (13.5-17.5); LYMPH # 0.8 10^3/uL (1.5-5.0); LYMPH % 7.2 % (24.0-44.0); MEAN CORPUSCULAR HEMOGLOBIN 29.8 pg (27.0-33.0); MEAN CORPUSCULAR HGB CONC 33.6 g/dl (32.0-36.5); MEAN CORPUSCULAR VOLUME 88.5 fl (80.0-96.0); MONO # 0.8 10^3/uL (0.0-0.8); MONO % 6.9 % (2.0-8.0); NEUTROPHILS # 9.9 10^3/uL (1.5-8.5); PLATELET COUNT, AUTOMATED 225 10^3/uL (150-450); RED BLOOD COUNT 5.21 10^6/uL (4.30-6.10); WHITE BLOOD COUNT 11.6 10^3/uL (4.0-10.0)
[2022-01-01 01:42] LABS: ALBUMIN 3.9 GM/DL (3.2-5.2); BILIRUBIN,DIRECT 0.1 MG/DL (0.0-0.2); BILIRUBIN,TOTAL 0.8 MG/DL (0.2-1.0); CALCIUM LEVEL 9.2 MG/DL (8.8-10.2); CREATININE FOR GFR 1.43 MG/DL (0.70-1.30); GLOMERULAR FILTRATION RATE 53.3 (>49); POTASSIUM SERUM 4.5 MEQ/L (3.5-5.1); TOTAL PROTEIN 7.2 GM/DL (6.4-8.2)
[2022-01-01 03:30] VITALS: BP 135/80
[2022-01-01] MEDS ORDERED: FLOM0.4C39 PO (05:04)
[2022-01-01] MEDS ORDERED: KETO10TAB PO (05:04)
[2022-01-01] MEDS ORDERED: CIPR-249 PO (05:04)
[2022-01-01] MEDS ORDERED: OXYCODONE/APAP 5MG/325MG(BULK FOR ED) 1 TABLET PO ONE (05:05)
[2022-01-01] MEDS ORDERED: TAMSULOSIN 0.4 MG CAP PO ONE (05:05)
== END 2022-01-01 05:49 | disposition home or self-care (01) ==
LOC: M ED 23:55
DX: N20.1 Calculus of ureter (principal); K21.9 Gastro-esophageal reflux disease without esophagitis; Z79.899 Other long term (current) drug therapy
CPT/HCPCS: 74176; 80048; 80076; 81001; 83690; 85025; 93041; 96374; 96375; 99284; J1885; J2405

== ENCOUNTER → 2022-08-26 | Outpatient (CLI) | payer OTHER ==
[~2022-08-26] MED LIST changes: +CIPR-249 PO; +FLOM0.4C39 PO
== END ==
LOC: M WUC 15:45
PROVIDERS: ATTEND Internal Medicine
DX: R05.9 Cough, unspecified (principal)

== ENCOUNTER → 2023-05-01 | Outpatient (REF) | payer OTHER | LOC: M LAB REF 12:30 | PROVIDERS: ATTEND Internal Medicine | DX: M25.50 Pain in unspecified joint (principal) ==

== ENCOUNTER → 2023-05-01 | Outpatient (CLI) | payer OTHER | LOC: M WUC 10:34 | PROVIDERS: ATTEND Internal Medicine | DX: M79.641 Pain in right hand (principal); M79.89 Other specified soft tissue disorders; M19.041 Primary osteoarthritis, right hand ==

== ENCOUNTER → 2023-05-26 | Outpatient (CLI) | payer OTHER | LOC: M WUC 15:04 | PROVIDERS: ATTEND Internal Medicine | DX: R05.9 Cough, unspecified (principal) ==

== ENCOUNTER 2024-02-05 11:26 | Day surgery (SDC) | payer OTHER ==
[~2024-02-05] VITALS: Ht 177.8 cm; Wt 112.0 kg
[~2024-02-05 11:26] MED LIST changes: +ALEV220T22 PO; +NS 1,000 ML IV ONE; +OMEP40CA5 PO
[2024-02-05] MEDS ORDERED: fentaNYL 100 MCG/2 ML INJECTION As Ordered ONE (12:03)
[2024-02-05] MEDS ORDERED: propofoL 200 MG/20 ML VIAL As Ordered ONE (12:29)
[2024-02-05 12:37] VITALS: TEMP 98.2
[2024-02-05 12:57] VITALS: BP 127/74; O2SAT 99
== END 2024-02-05 12:59 | disposition home or self-care (01) ==
LOC: M OPP 11:26
PROVIDERS: ATTEND Internal Medicine Gastroenterology
DX: K22.89 Other specified disease of esophagus (principal); K44.9 Diaphragmatic hernia without obstruction or gangrene; K21.9 Gastro-esophageal reflux disease without esophagitis; R12 Heartburn; R05.3 Chronic cough; Z79.1 Long term (current) use of non-steroidal anti-inflammatories (NSAID); Z79.899 Other long term (current) drug therapy
CPT/HCPCS: 43239; 88305; J3010

== ENCOUNTER 2024-04-20 06:50 | Day surgery (SDC) | payer OTHER ==
[~2024-04-20] VITALS: Ht 177.8 cm; Wt 112.1 kg
[2024-04-20] MEDS: NS 1,000 ML IV ONE (06:00)
[~2024-04-20 06:50] MED LIST changes: -NS 1,000 ML IV ONE; +ONDA-282 PO; -ONDA4TAB6 PO
[2024-04-20] MEDS ORDERED: propofoL 200 MG/20 ML VIAL As Ordered ONE (06:56)
[2024-04-20] MEDS ORDERED: LIDOCAINE 2% 100MG/5ML SDV (FOR ANES.) As Ordered ONE (06:56)
[2024-04-20] MEDS ORDERED: fentaNYL 100 MCG/2 ML INJECTION As Ordered ONE (06:58)
[2024-04-20 08:30] VITALS: BP 107/75; TEMP 98.2; O2SAT 96
== END 2024-04-20 08:46 | disposition home or self-care (01) ==
LOC: M OPP 06:50
PROVIDERS: ATTEND Surgery
DX: K44.9 Diaphragmatic hernia without obstruction or gangrene (principal); R12 Heartburn; Z79.1 Long term (current) use of non-steroidal anti-inflammatories (NSAID); Z79.899 Other long term (current) drug therapy
CPT/HCPCS: 43235; 91035; J3010

== ENCOUNTER → 2024-06-29 | Outpatient (CLI) | payer OTHER, MEDICARE ==
[~2024-06-29] MED LIST changes: +E-Z-GAS II EFFERVESCENT PACKET (SODIUM BICARB./CITRIC ACID/SIMETHICONE) As Ordered ONE; +E-Z-HD 98% w/w 340GM SUSP BTL As Ordered ONE; +E-Z-PAQUE 96% w/w SUSP 176GM BTL As Ordered ONE
== END ==
LOC: M RAD 08:46
PROVIDERS: ATTEND Surgery
DX: K44.9 Diaphragmatic hernia without obstruction or gangrene (principal)

== ENCOUNTER → 2024-07-27 | Outpatient (CLI) | payer MEDICARE, OTHER ==
[~2024-07-27] MED LIST changes: -E-Z-GAS II EFFERVESCENT PACKET (SODIUM BICARB./CITRIC ACID/SIMETHICONE) As Ordered ONE; -E-Z-HD 98% w/w 340GM SUSP BTL As Ordered ONE; -E-Z-PAQUE 96% w/w SUSP 176GM BTL As Ordered ONE
== END ==
LOC: M WUC 10:34
PROVIDERS: ATTEND Internal Medicine
DX: R05.9 Cough, unspecified (principal); K44.9 Diaphragmatic hernia without obstruction or gangrene

== ENCOUNTER → 2024-09-06 | Outpatient (CLI) | payer MEDICARE, OTHER | LOC: M RAD 14:13 | PROVIDERS: ATTEND Otolaryngology | DX: D44.0 Neoplasm of uncertain behavior of thyroid gland (principal) ==

== ENCOUNTER → 2024-10-27 | Outpatient (REF) | payer MEDICARE, OTHER ==
[~2024-10-27] MED LIST changes: +OMEP-611 PO; -OMEP20TA2 PO
== END ==
LOC: M LAB REF 16:34
PROVIDERS: ATTEND Internal Medicine
DX: M25.50 Pain in unspecified joint (principal)

== ENCOUNTER → 2024-10-27 | Outpatient (CLI) | payer MEDICARE, OTHER | LOC: M PLAIMG 13:49 | PROVIDERS: ATTEND Internal Medicine Pulmonary Disease | DX: R05.9 Cough, unspecified (principal); R91.1 Solitary pulmonary nodule; K80.20 Calculus of gallbladder without cholecystitis without obstruction; J44.9 Chronic obstructive pulmonary disease, unspecified; M25.50 Pain in unspecified joint ==

== ENCOUNTER → 2024-10-28 | Outpatient (CLI) | payer MEDICARE, OTHER ==
[~2024-10-28] MED LIST changes: +METHACHOLINE KIT (6 VIAL.NEB PREMIX) INH ONE
== END ==
LOC: M CARPUL 12:29
PROVIDERS: ATTEND Internal Medicine Pulmonary Disease
DX: R05.9 Cough, unspecified (principal)
CPT/HCPCS: 94070; 94726; 94729; 95070; J7674

== ENCOUNTER 2025-03-18 06:30 | Day surgery (SDC) | payer MEDICARE, OTHER ==
[~2025-03-18] VITALS: Ht 177.8 cm; Wt 118.8 kg
[~2025-03-18 06:30] MED LIST changes: +BREO1INH3 INH; -FLOM0.4C39 PO; -METHACHOLINE KIT (6 VIAL.NEB PREMIX) INH ONE; +PROA1AER2 INH; +TAMS-18 PO
[2025-03-18] MEDS ORDERED: LIDOCAINE VISCOUS 2% SOLN 15ML UDC As Ordered ONE (07:06)
[2025-03-18 07:42] VITALS: BP 163/74; TEMP 97.2; O2SAT 97
== END 2025-03-18 07:48 | disposition home or self-care (01) ==
LOC: M OPP 06:30
PROVIDERS: ATTEND Surgery
DX: K44.9 Diaphragmatic hernia without obstruction or gangrene (principal)

== ENCOUNTER → 2025-10-24 | Outpatient (CLI) | payer MEDICARE, OTHER | LOC: M WUC 11:14 | PROVIDERS: ATTEND Internal Medicine | DX: R06.02 Shortness of breath (principal) ==